=== PATIENT | female | born 1980 | race Caucasian/White ===

== ENCOUNTER 2016-09-13 03:30 | Inpatient (IN) | payer OTHER ==
[2016-09-13] MEDS ORDERED: AMPICILLIN 2 GM/100 ML BAG (PRE-DOCKED) IVPB ONE (03:50)
[2016-09-13] MEDS: ELECTROLYTE-148 SOLN 1,000 ML IV SCH (03:50)
[2016-09-13 04:11] LABS: BASOPHIL 1.3 % (0-2.0); EOSINOPHIL 1.8 % (0-4.5); MCH 29.2 pg (25.7-33.7); MCHC 34.3 g/dl (32.0-36.0); MEAN CELL VOLUME 85.2 fl (80-96); MEAN PLT VOLUME 10.1 fl (7.5-11.1); NEUTROPHILS 59.8 % (42.8-82.8); PLATELET COUNT 275 K/MM3 (134-434); RDW 13.8 % (11.6-15.6); WHITE BLOOD COUNT 7.5 K/mm3 (4.0-10.0)
[2016-09-13 04:25] LABS: INR 0.99 (0.82-1.09); PROTHROMBIN TIME (PATIENT) 10.9 SEC (9.98-11.88)
[2016-09-13 04:27] LABS: ACTIVATED PTT 28.5 SECONDS (26.9-34.4)
[2016-09-13] MEDS ORDERED: ACETAMINOPHEN 325 MG TABLET (FP) PO PRN (04:34)
[2016-09-13] MEDS ORDERED: WITCH HAZEL 50% (TUCKS) 40 PAD/JAR PAD TP PRN (04:34)
[2016-09-13] MEDS ORDERED: BENZOCAINE 20% 57 GM BOTTLE TP PRN (04:34)
[2016-09-13] MEDS ORDERED: METHYLERGONOVINE MALEATE 0.2 MG/1 ML AMP IM PRN (04:34)
[2016-09-13] MEDS ORDERED: BENZOCAINE 28 GM HEMORRHOIDAL OINTMENT TP PRN (04:34)
[2016-09-13] MEDS ORDERED: BISACODYL 10 MG SUPP.RECT RC PRN (04:34)
[2016-09-13 04:40] LABS: VENOUS PH 7.25 (7.32-7.42)
[2016-09-13 04:42] LABS: ARTERIAL BLD GAS O2 SATURATION 76.6 % (90-98.9); ARTERIAL BLOOD GAS BASE EXCESS -2.7 meq/l (-2-2); ARTERIAL BLOOD GAS HCO3 22.4 meq/L (22-26); ARTERIAL BLOOD GAS pH 7.35 (7.35-7.45)
[2016-09-13 04:43] LABS: LPM/O2% 21%; PT. ON O2? no; VENOUS BLOOD GAS HCO3 26.2 meq/L (19-25)
[2016-09-13 04:44] LABS: TYPE OF O2 room air
[2016-09-13] MEDS ORDERED: D5W-LR W/ 20 UNITS OXYTOCIN 1,000 ML IV SCH (04:45)
--- NOTE | 2016-09-13 04:49 | HP ---
Past Medical History - Admission Chief Complaint: Labor pain History of Present Illness: 36 yo @ 31 weeks gestation, EDC 11/10/16, presents c/o labor pain associated with vaginal bleeding. Upon admission she was 6-7 cm dilated with intact membrane. History Source: Patient Limitations to Obtaining History: No Limitations - Past Medical History ...: 4 ...Para: 2 - Past Surgical History Past Surgical History: Yes: None Hx Myomectomy: No Hx Transabdominal Cerclage: No - Smoking History Smoking history: Never smoked Aproximately how many cigarettes per day: 0 - Alcohol/Substance Use Hx Alcohol Use: No - Social History History of Recent Travel: No Home Medications - Allergies Allergies/Adverse Reactions: Allergies Allergy/AdvReac Type Severity Reaction Status Date / Time No Known Allergies Allergy Unverified 09/12/11 12:12 - Home Medications Home Medications: Ambulatory Orders Acetaminophen [Tylenol .Regular Strength -] 650 mg PO Q3H PRN #0 tablet Pnv Comb.no58/Iron Bisgly/FA [ Capsule] 1 each PO DAILY #30 01/17/12 Family Disease History - Family Disease History Family History: Unremarkable Review of Systems - Review of Systems Constitutional: reports: No Symptoms Eyes: reports: No Symptoms HENT: reports: No Symptoms Neck: reports: No Symptoms Cardiovascular: reports: No Symptoms Respiratory: reports: No Symptoms Gastrointestinal: reports: No Symptoms Genitourinary: reports: Pain Breasts: reports: No Symptoms Reported Musculoskeletal: reports: No Symptoms Integumentary: reports: No Symptoms Neurological: reports: No Symptoms Endocrine: reports: No Symptoms Hematology/Lymphatic: reports: No Symptoms Psychiatric: reports: No Symptoms Pain Intensity: 7 Physical Exam - Maternity Constitutional: Yes: Well Nourished Eyes: Yes: WNL HENT: Yes: WNL Neck: Yes: Supple Cardiovascular: Yes: Regular Rate and Rhythm Lungs: Clear to auscultation Breast(s): Yes: WNL - Abdominal Exam/OB Number of Fetuses: Single Presentation: Vertex Contractions: Yes Intensity: Mod/Strong Monitor Mode: External - Vaginal Exam/OB Vaginal Bleediing: Yes Speculum Exam: No Dilatation (cm): 6-7 Effacement (%): 90 Amniotic Membrane Status: Intact - Labs Lab Results: CBC, BMP 03/13/17 03:15 Problem List - Problems (1) labor in third trimester with delivery Code(s): O60.14X0 - LABOR THIRD TRI W DELIVERY THIRD TRI, UNSP Qualifiers: Fetus number: single or unspecified fetus Qualified Code(s): O60.14X0 - labor third trimester with delivery third trimester, not applicable or unspecified Assessment/Plan labor Admit to L&D Anticipate
--- NOTE | 2016-09-13 04:54 | PN ---
[id number] Delivery, Single - 1 Minute Total Score: 9 5 Minutes Total Score: 9 Remarks - Remarks Remarks: of a live infant over intact perineum. Nose / Oropharynx suctioned @ perineum. Cord clamped and cut; placenta expelled spontaneously intact.
[2016-09-13 05:00] LABS: CALCIUM 9.3 mg/dL (8.5-10.1); CREATININE 0.5 mg/dL (0.55-1.02)
[2016-09-13 05:30] VITALS: BMI 30.9
[2016-09-13] MEDS: ACETAMINOPHEN 325 MG TABLET (FP) PO PRN ×2 (08:04→21:18)
[2016-09-13] MEDS: IBUPROFEN 600 MG TABLET (FP) PO PRN ×2 (08:05→21:17)
[2016-09-13 08:24] LABS: HIV 1 & 2 AB NEGATIVE; HIV 1 AGp24 NEGATIVE
[2016-09-13] MEDS ORDERED: TUBERCULIN PPD 5 TU/0.1ML SYRINGE (IN PATIENT USE ONLY) ID ONE (09:00)
[2016-09-13] MEDS: PRENATAL VITAMINS W/ FOLIC ACID TABLET (FP) PO SCH (09:37)
[2016-09-13] MEDS: FERROUS SO4 325 MG TABLET (FP) PO SCH ×2 (09:37→21:17)
[2016-09-14 08:52] LABS: BASOPHIL 1.4 % (0-2.0); EOSINOPHIL 2.2 % (0-4.5); MCH 29.1 pg (25.7-33.7); MCHC 33.9 g/dl (32.0-36.0); MEAN CELL VOLUME 85.9 fl (80-96); MEAN PLT VOLUME 10.1 fl (7.5-11.1); NEUTROPHILS 57.4 % (42.8-82.8); PLATELET COUNT 240 K/MM3 (134-434); RDW 13.4 % (11.6-15.6)
[2016-09-14] MEDS: PRENATAL VITAMINS W/ FOLIC ACID TABLET (FP) PO SCH (09:58)
[2016-09-14] MEDS: FERROUS SO4 325 MG TABLET (FP) PO SCH ×2 (09:58→21:29)
[2016-09-14] MEDS ORDERED: DIPHTH,PERTUSS(ACELL),TET 0.5 ML DISP.SYRIN IM ONE (10:00)
[2016-09-14] MEDS: ELECTROLYTE-148 SOLN 1,000 ML IV SCH (20:46)
[2016-09-14] MEDS: ACETAMINOPHEN 325 MG TABLET (FP) PO PRN (21:29)
[2016-09-14] MEDS: IBUPROFEN 600 MG TABLET (FP) PO PRN (21:30)
--- NOTE | 2016-09-14 21:47 | PN ---
Post Progress Note Type of Delivery: Vital Signs: Vital Signs Temperature 98.6 F 09/14/16 10:00 Pulse Rate 84 09/14/16 10:00 Respiratory Rate 18 09/14/16 10:00 Blood Pressure 97/63 09/14/16 10:00 O2 Sat by Pulse Oximetry (%) 99 09/13/16 04:45 Uterus: Yes: Fundus Firm, Fundus below umbilicus Lochia, amount: Small Extremities: Yes: Calves non-tender. No: Edema Perineum: Yes: Intact. No: Laceration Activity: Ambulating - Labs Labs: CBC WBC 8.0 K/mm3 (4.0-10.0) 09/14/16 08:20 RBC 3.81 M/mm3 (3.60-5.2) 09/14/16 08:20 Hgb 11.1 GM/dL (10.7-15.3) D 09/14/16 08:20 Hct 32.7 % (32.4-45.2) 09/14/16 08:20 MCV 85.9 fl (80-96) 09/14/16 08:20 MCHC 33.9 g/dl (32.0-36.0) 09/14/16 08:20 RDW 13.4 % (11.6-15.6) 09/14/16 08:20 Plt Count 240 K/MM3 (134-434) 09/14/16 08:20 MPV 10.1 fl (7.5-11.1) 09/14/16 08:20 Neutrophils % 57.4 % (42.8-82.8) 09/14/16 08:20 Lymphocytes % 30.8 % (8-40) 09/14/16 08:20 Monocytes % 8.2 % (3.8-10.2) 09/14/16 08:20 Eosinophils % 2.2 % (0-4.5) 09/14/16 08:20 Basophils % 1.4 % (0-2.0) 09/14/16 08:20 Problem List - Problems (1) Normal vaginal delivery of third Code(s): O80 - ENCOUNTER FOR FULL-TERM UNCOMPLICATED DELIVERY Assessment/Plan 36 y/o PPD#1 s/p normal - AFVSS - Hgb 11.1 and stable - routine care: PO pain meds, regular diet - discharge home in a.m. 09/15
[2016-09-14] MEDS ORDERED: SENNOSIDES/DOCUSATE COMBO (SENNA PLUS) TABLET (UD) PO PRN (22:00)
--- NOTE | 2016-09-15 07:29 | DS ---
Physical Exam-PHOTO INTERN Vital Signs: Vital Signs Temperature 98.1 F 09/14/16 22:00 Pulse Rate 85 09/14/16 22:00 Respiratory Rate 18 09/14/16 22:00 Blood Pressure 127/77 09/14/16 22:00 O2 Sat by Pulse Oximetry (%) 99 09/13/16 04:45 Constitutional: Yes: Well Nourished, No Distress, Calm Eyes: Yes: Conjunctiva Clear, EOM Intact HENT: Yes: Atraumatic, Normocephalic Neck: Yes: Supple, Trachea Midline Cardiovascular: Yes: Regular Rate and Rhythm Respiratory: Yes: Regular, CTA Bilaterally Gastrointestinal: Yes: Normal Bowel Sounds, Soft Uterus: Yes: Normal ....Post : Yes: Uterus firm, Uterus non-tender Neurological: Yes: Alert, Oriented Psychiatric: Yes: Alert, Oriented Labs: CBC, BMP 09/14/16 08:20 09/13/16 03:15 Delivery - Delivery Vaginal Delivery: Spontaneous Type of Anesthesia: None Episiotomy/Laceration: None EBL (cc): 300 Delivery, Single - Stages of Labor Date 1st Stage Initiatied: 09/13/16 Time 1st Stage Initiated: 02:00 Date 2nd Stage Initiated: 09/13/16 Time 2nd Stage Initiated: 04:13 Date of Delivery: 09/13/16 Time of Delivery: 04:24 Time Placenta Delivered: 04:25 - Condition of Administrative Support Coordinator/Truckload Checker Present: Yes Name: Cristopher Jorgensen Infant Gender: Female Weight: 3 lb 14 oz Position: Left, OA Total Hours ROM (Hrs/Mins): 13mins - 1 Minute Total Score: 9 5 Minutes Total Score: 9 - Feeding Plan Initial Plan: Elected not to breastfeed exclusively throughout hospitalization Discharge Summary Reason For Visit: LABOR ADMIT Current Active Problems Normal vaginal delivery of third (Acute) labor in third trimester with delivery (Acute) Procedures: Principal: spontaneous vaginal delivery Hospital Course: Patient admitted in active labor on 09/13/16 and underwent normal uncomplicated of a infant (see delivery note for detail). Patient then underwent a normal post recovery and was discharged home in stable condition on post day 2. Condition: Good - Instructions Diet, Activity, Other Instructions: Regular diet No douching, no sexual intercourse x 6 weeks. F/U with MD in 6 weeks. Referrals: Angie Branch MD [Staff Physician] - Disposition: HOME - Home Medications Comprehensive Discharge Medication List: Ambulatory Orders Tablet 1 tab PO DAILY 09/13/16
[2016-09-15 11:38] VITALS: BP 112/73; PULSE 78; TEMP 98.3
--- NOTE | 2016-09-16 13:37 | PATH ---
Surgical Pathology Report Patient Name: JAKOB YEE Med. Rec. #: [id number] /Age/Gender: 1980 (Age: 36) / F Account: [id number] Location: [facility] OBS/IT SYSTEMS ADMINISTRATOR Taken: 09/13/2016 Received: 09/13/2016 Reported: 09/16/2016 Physicians: Lan Cm M.D. Specimen(s) Received PLACENTA Clinical History , 31.5 weeks gestation Status post delivery; live female Final Diagnosis PLACENTA, DELIVERY: FOCALLY DISRUPTED, SMALL (<400 GM), THIRD TRIMESTER PLACENTA WITH MILD PREVILLOUS, PERIVILLOUS, AND PRECHORIONIC FIBRIN DEPOSITION, THREE VESSEL UMBILICAL CORD, AND PLACENTAL MEMBRANES WITH ACUTE CHORIOAMNIONITIS AND CIRCUMMARGINATE INSERTION. Electronically Signed Santhosh Whiting M.D. Gross Description The specimen is received fresh, labeled "placenta" and is a 303 gram, 15.0 x 14.0 x 2.7 cm placenta with attached membranes and umbilical cord. The attached membranes are bennett, translucent with focal opacities and display focal circumarginate insertion. The umbilical cord measures 8 cm in length and averages 1 cm in diameter. The cord inserts at the margin. No true knots or strictures are identified. Cut surface of the umbilical cord reveals 3 vessels. The surface is abdul-blue with fibrin deposition and appropriate caliber vessels. The maternal surface is red-brown with focal defects. Sectioning reveals red-brown, spongy parenchyma. No focal lesions are identified. Respiratory Care Specialist sections are submitted in three cassettes as follows: 1- membrane rolls and umbilical cord; 2-3- full thickness sections of placenta. /09/15/2016 [facility]09/15/2016
== END 2016-09-15 09:00 | disposition home or self-care (01) | DRG 560 ==
LOC: JLDR 03:30 → J3W 05:59
PROVIDERS: ADMIT Obstetrics & Gynecology; ATTEND Obstetrics & Gynecology
PROC: 10E0XZZ Delivery of Products of Conception, External Approach (ICD-10-PCS; principal; 2016-09-13)
DX: O60.14X0 Preterm labor third trimester with preterm delivery third trimester, not applicable or unspecified (principal); O09.523 Supervision of elderly multigravida, third trimester; Z3A.31 31 weeks gestation of pregnancy; O26.893 Other specified pregnancy related conditions, third trimester; Z37.0 Single live birth
CPT/HCPCS: 36415; 36600; 59409; 80048; 82803; 85025; 85610; 85730; 86593; 86850; 86900; 86901; 87389; 88307-TC; 90715